=== PATIENT | male | born 1990 | race Caucasian/White ===

== ENCOUNTER 2020-04-22 07:56 | Outpatient (CLI) | payer BC, SELFPAY ==
--- NOTE | ~2020-04-22 | CT_ITS ---
EXAMINATION: CT soft tiss neck chst ab w EXAM DATE: 04/22/2020 08:35 INDICATION: R59.1 - Generalized enlarged lymph nodes. Symptoms 3 months. TECHNIQUE: Spiral CT of the neck, chest, abdomen was performed following intravenous injection of 100 mL Omnipaque 350. Axial, coronal and sagittal images of the neck were reviewed. Axial, coronal and sagittal images of the chest were reviewed. Coronal maximum intensity pixel images of chest reviewe d. Axial, coronal and sagittal images of the abdomen were reviewed. The dose-length product (DLP) f or this examination was 1136.91 mGy-cm. The exposure was tailored according to patient size (auto mA exposure control), and iterative reconstruction (ASIR) was used as additional dose reduction techniq ue. There is no prior study for comparison. FINDINGS: NECK: The thyroid gland is unremarkable. The submandibular and parotid glands are symmetric. Ther e is scattered internal jugular chain and submandibular lymph nodes. On the right one of the largest internal jugular chain lymph nodes measures 1.4 x 0.9 cm. A submental lymph node measures 10 x 8 mm. The airway is unremarkable. Parapharyngeal and pre-glottic fat planes are preserved. The opacifi ed vasculature is patent. The orbits are unremarkable. Moderate-sized right maxillary sinus mucou s retention cyst, several small left maxillary sinus mucous retention cyst. There is cervical spondy losis. CHEST: The lungs are clear. 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 There are no pleural or pericardial effusions. Tracheobronchial tree is patent. There is no medi astinal, hilar or axillary lymphadenopathy. There is no pneumothorax. Heart normal in size. No evidence of coronary arterial calcification. ABDOMEN: The liver, spleen, adrenal glands and pancreas are unremarkable. Gallbladder is unremarkabl e. No biliary obstruction. Portal and splenic veins are patent. Kidneys enhance symmetrically. Th ere is no hydronephrosis. There is no retroperitoneal or mesenteric lymphadenopathy. The stomach and small bowel are unremarkable. There is expected amount of colonic stool. No free intraperiton eal gas. There are no osteoblastic or osteolytic lesions identified. IMPRESSION: Submental and internal jugular chain lymph nodes which are upper limits of normal in size . No thoracic or abdominal lymphadenopathy. If symptoms persist, consider follow-up neck CT or ENT co nsult. Reviewed, dictated and finalized at location B. [facility] [employer] SPECIALIST IMPRESSION: Submental and internal jugular chain lymph nodes which are upper li mits of normal in size. No thoracic or abdominal lymphadenopathy. If symptoms p ersist, consider follow-up neck CT or ENT consult.
== END 2020-04-22 07:57 | disposition home or self-care (01) ==
PROVIDERS: PCP Internal Medicine; Visit Provider Internal Medicine
DX: R59.1 Generalized enlarged lymph nodes (principal)
CPT/HCPCS: 70491; 71260; 74160; Q9967

== ENCOUNTER → 2020-05-23 01:50 | Outpatient (CLI) | payer BC, SELFPAY ==
[2020-05-23 19:35] LABS: SARS-CoV-2 RNA PCR Negative
== END ==
PROVIDERS: PCP Internal Medicine; Visit Provider Otolaryngology
DX: Z01.812 Encounter for preprocedural laboratory examination (principal); Z20.822 Contact with and (suspected) exposure to COVID-19
CPT/HCPCS: C9803; U0003; U0005

== ENCOUNTER 2023-03-03 08:27 | Emergency (ER) | payer OTHER, SELFPAY ==
[2023-03-03 08:37] VITALS: BP 114/82; PULSE 69; RESP 16; TEMP 36.8; O2SAT 99
--- NOTE | 2023-03-03 08:43 | ED.URI ---
HPI - URI/Sore Throat General Chief Complaint: Upper Respiratory Infection Stated Complaint: Sore throat;Cough Time Seen by Provider: 03/03/23 08:43 Source: patient, RN notes reviewed and old records reviewed Mode of arrival: ambulatory Limitations: no limitations Related Data Allergies Allergy/AdvReac Type Severity Reaction Status Date / Time No Known Allergies Allergy Verified 05/23/20 12:15 Review of Systems Review of Systems: 32-year-old male presents to [facility] with complaint of sore throat that started on Saturday. Patient says sore throat is worsening and now also has a cough. Patient tried [id number] medications with no relief. Patient denies fever, shortness of breath, myalgia, or congestion Constitutional: Constitutional: Reports no additional constitutional complaints Eyes: Eyes: Reports no additional eye complaints ENT: Reports as per HPI, Denies nasal congestion and Reports sore throat Cardiovascular: Cardiovascular: Reports no additional cardiovascular complaints Respiratory: Respiratory: Reports as per HPI and Reports cough Neurologic: Reports system reviewed and no additional complaints, except as documented PMFSH Past Medical History Medical History Dyshidrotic eczema Lymphadenopathy Family History Family History Father Diabetes mellitus Grandparent Diabetes mellitus Mother Family history of mental disorder Social History Social History Smoking status: Never smoker Second hand tobacco smoke exposure: No Alcohol intake: current Substance use: never Substance use type: does not use Living arrangements: with family Gender identity (if verbalized by the patient): Male Spiritual care concerns: No Comments At the time of my signature, I reviewed and agree with the nursing past medical, surgical, social, and family history. There is no relevant family history pertinent to the patient complaint. Exam Const: General: cooperative, healthy appearing, no acute distress and well nourished Nutritional Appearance: well nourished Orientation/consciousness: patient oriented x3 Limitations: no limitations HENMT: Head: normal to inspection and normocephalic Ears: external ears normal, TM's normal bilaterally, mastoids normal and Abnormal EAC present Face/Nose/Sinus: normal facial exam Face and sinus: normal facial exam Mouth: Yes Normal oral and palatal mucosa present, Yes oropharynx normal and Yes moist mucous membranes Throat: uvula midline (Positive erythema, tonsils 2+) Eyes: General: appearance normal, both eyes and all related structures Sclera: sclerae normal Pupils: Equal, round and reactive pupils present Resp: Effort & Inspection: normal respiratory effort, able to speak in complete sentences, no audible wheezes, no cough, no respiratory distress and no retractions Auscultation: clear to auscultation bilaterally, no crackles, no rales, no rhonchi and no wheezes Cardio: Rate: regular rate Rhythm: regular rhythm Skin: General skin exam: normal color and no rashes or lesions noted Neuro: General: patient oriented x3 Cranial nerves: Yes Equal, round and reactive pupils present Psych: Appearance: grossly normal Course Course Emergency Course: Some parts of this dictation were generated by voice recognition software and may contain typographical and/or grammatical inaccuracies. Level of Care: Express Care Visit Vital Signs Vital signs: Vital Signs Temperature 98.3 F 03/03/23 08:37 Pulse Rate 69 03/03/23 08:37 Respiratory Rate 16 03/03/23 08:37 Blood Pressure 114/82 03/03/23 08:37 Pulse Oximetry 99 03/03/23 08:37 Temperature 98.3 F 03/03/23 08:37 Pulse Rate 69 03/03/23 08:37 Respiratory Rate 16 03/03/23 08:37 Blood Pressure 114/82 03/03/23 08
== END 2023-03-03 09:05 | disposition home or self-care (01) ==
PROVIDERS: Emergency Provider Registered Nurse; PCP Internal Medicine
DX: J02.0 Streptococcal pharyngitis (principal)
CPT/HCPCS: 87880; 99213; G0463

== ENCOUNTER 2023-08-05 16:57 | Outpatient (CLI) | payer SELFPAY ==
--- NOTE | ~2023-08-05 | XR_ITS ---
EXAMINATION: XR lumbar spine 2-3V DATE: 08/05/2023 17:19 INDICATION: Low back pain, unspecified. TECHNIQUE: 3 views of lumbar spine including standing views were obtained. COMPARISON: None. FINDINGS: Bone alignment is normal. Vertebral body heights are normal. There is mildly decreased disc height at L2-L3 and L5-S1. There is multilevel mild facet joint osteoarthritis. IMPRESSION: 1. Mild lumbar spondylosis. Reviewed, dictated and finalized at location A. IMPRESSION: 1. Mild lumbar spondylosis.
== END 2023-08-05 16:58 ==
PROVIDERS: PCP Nurse Practitioner Family; Visit Provider Nurse Practitioner Family
DX: M47.896 Other spondylosis, lumbar region (principal)
CPT/HCPCS: 72100

== ENCOUNTER 2024-12-06 04:27 | Emergency (ER) | payer OTHER, SELFPAY ==
[2024-12-06] VITALS (42 sets, daily range): BP systolic 110–144; BP diastolic 71–98; PULSE 65–89; RESP 9–21; TEMP 36.8; O2SAT 96–100
--- NOTE | ~2024-12-06 | XR_ITS ---
EXAMINATION: XR chest 2V 12/06/2024 05:03 INDICATION: Chest pain PROCEDURE: PA and lateral views of the chest COMPARISON: No prior studies for comparison. FINDINGS: The lungs are clear. The cardiomediastinal silhouette is within normal limits. There are no pleural effusions. There is no pneumothorax suspected. IMPRESSION: 1: NO ACUTE CARDIOPULMONARY DISEASE. Reviewed, dictated and finalized at location O.
--- NOTE | ~2024-12-06 | CT_ITS ---
EXAMINATION: CTA chest PE abdomen pel DATE: 12/06/2024 06:31 INDICATION: Chest pain. Increased lipase levels. TECHNIQUE: Computed tomography (CT) pulmonary angiogram of the chest was performed with 100 mL Omnipaque-350 intravenous contrast. Additional 3D reconstructions utilizing coronal maximum intensity projection (MIP) were performed. CT of the abdomen and pelvis was performed with intravenous contrast utilizing the same contrast bolus following a short delay. Automated exposure control and iterative reconstruction technique were employed. The dose-length product was 791.56 mGy-cm. COMPARISON: None FINDINGS: Chest: No pulmonary embolism. No pneumonia, pulmonary edema or other pulmonary infiltrates. No pleural effusion or pneumothorax. Heart size is normal. No pericardial effusion. Thoracic aorta is normal in caliber with no dissection. Small amount of residual thymic tissue in the anterior mediastinum with typical triangular morphology and mixed fat and soft tissue density. No pathologically enlarged thoracic lymphadenopathy. Mild midthoracic spondylosis with a few Schmorl's nodes along the mid and lower thoracic spine. Abdomen/pelvis: Liver, gallbladder, spleen, pancreas, bilateral adrenal glands and kidneys are normal. No intra or extra hepatic biliary ductal dilation. Bowels including the appendix are normal. Small fat-containing umbilical hernia. Bladder is normal. No free intraperitoneal gas or fluid. No pathologically enlarged abdominal or pelvic lymphadenopathy. Moderate disc height loss at L2-L3. The inferior articular processes aren't fused bilaterally at L2. IMPRESSION: 1. No pulmonary embolism or other acute cardiopulmonary disease. 2. No acute intra-abdominal/pelvic process. 3. 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 Reviewed, dictated and finalized at location A. IMPRESSION: 1. No pulmonary embolism or other acute cardiopulmonary disease. 2. No acute intra-abdominal/pelvic process. 3. 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
--- NOTE | 2024-12-06 04:29 | ECG_ITS ---
Test Date: 2024-12-06 04:32:44 Measurements Intervals [place] Rate: 70 P: 56 [place]: 167 QRS: 46 QRSD: 90 T: 31 QT: 377 QTc: 409 Interpretive Statements SINUS RHYTHM BASELINE ARTIFACT- I, II, III, AVR, AVL, AVF, V1-V6 NORMAL ECG No previous ECG available for comparison Electronically Signed On 12-06-2024 07:23:10 CDT by Garry Lombardi D.O.
[2024-12-06 04:37] LABS: Hematocrit 45.3 % (42.0-52.0); Hemoglobin 15.2 g/dL (14.0-18.0); Immature Granulocyte Percent A 0.4 % (0-0.5); Lymphocytes Absolute Auto 2.81 K/mm3 (0.9-3.2); Mean Corpuscular HGB Conc 33.6 g/dl (32-36); Mean Corpuscular Hemoglobin 29.9 pg (26-34); Mean Corpuscular Volume 89.2 fl (80-100); Nucleated Red Blood Cells Absolute Auto 0.000 K/mm3 (0.0-0.012); Nucleated Red Blood Cells Perc 0.0 % (0.0-0.2); Platelet Count Result 305 k/mm3 (150-375); Red Blood Count 5.08 M/mm3 (4.6-6.20); White Blood Count 8.4 K/mm3 (4.5-10.0)
--- NOTE | 2024-12-06 04:40 | ED_ITS ---
HPI - General Adult General Chief complaint: Chest Pain <Rad Winters MD - Last Filed: 12/06/24 04:41> Stated complaint: chest pain <Rad Winters MD - Last Filed: 12/06/24 04:41> Time Seen by Provider: 12/06/24 04:27 <Rad Winters MD - Last Filed: 12/06/24 04:41> History of Present Illness HPI narrative: Patient is a 33-year-old gentleman who presents emergency department chief complaint of left-sided chest pain. The patient reports pain began just prior to arrival reports woke him up from sleep reports it was sharp reports worse with inspiration patient states that he did some pushups today with his kids on his back and also went for a run today patient reports no prior history of cardiac disease reports no family history for cardiac disease at young age. EMS was called a normal EKG in the field <Rad Winters MD - Last Filed: 12/06/24 04:41> Patient is a 33-year-old gentleman who presents to the emergency department chief complaint of left-sided chest pain. The patient reports pain began just prior to arrival reports woke him up from sleep reports it was sharp reports worse with inspiration patient states that he did some pushups today with his kids on his back and also went for a run today patient reports no prior history of cardiac disease reports no family history for cardiac disease at young age. EMS was called a normal EKG in the field <Ho Velez MD - Last Filed: 12/06/24 17:04> Related Data Allergies/adverse reactions: Allergies Allergy/AdvReac Type Severity Reaction Status Date / Time No Known Allergies Allergy Verified 07/18/23 07:15 <Rad Winters MD - Last Filed: 12/06/24 04:41> Review of Systems 2 Review of Systems: A 10 system review of systems was completed on the patient and is negative except for what is stated in the HPI. Nursing and ancillary documentation was reviewed. <Rad Winters MD - Last Filed: 12/06/24 04:41> PMFSH Past Medical History Medical History: Medical History Abnormal CT scan, neck Dyshidrotic eczema Lymphadenopathy <Rad Winters MD - Last Filed: 12/06/24 04:41> Family History Family History: Family History Father Diabetes mellitus Grandparent Diabetes mellitus Mother Family history of mental disorder <Rad Winters MD - Last Filed: 12/06/24 04:41> Social History Social History: Social History Smoking status: Never smoker Second hand tobacco smoke exposure: No Alcohol intake: current Substance use: never Substance use type: does not use Living arrangements: with family Gender identity (if verbalized by the patient): Male Spiritual care concerns: No <Rad Winters MD - Last Filed: 12/06/24 04:41> Exam 2 Narrative: GENERAL: Well-appearing, well-nourished, and in no acute distress. HEAD: Normocephalic, atraumatic. EYES: PERRLA and EOMI. ENT: Nares clear, no rhinorrhea or epistaxis. Mucous membranes moist. NECK: Supple. CHEST: Clear to auscultation. No respiratory distress. HEART: Regular rate and rhythm. No murmur heard. Normal peripheral pulses. ABDOMEN: Soft, nontender, nondistended, normal active bowel sounds. EXTREMITIES: Normal range of motion. No edema. SKIN: Warm, dry, no rash. NEURO: No focal deficits. Alert and oriented x3. PSYCH: Normal mood and affect. <Rad Winters MD - Last Filed: 12/06/24 04:41> Course Reevaluation(s) Reevaluation #1: On re-evaluation patient does feel improved. Patient was updated results of the workup patient was comfortable the plan for discharge and close follow- up. <Ho Velez MD - Last Filed: 12/06/24 17:04> Vital Signs Vital signs: Vital Signs Temperature 98.3 F 12/06/24 04:24 Pulse Rate 79 12/06/24 04:24 Respiratory Rate 12 12/06/24 04:24 Blood Pressure 135/94 H 12/06/24 04:24 Pulse Oximetry 96 12/06/24 04:24 Oxygen Delivery Room Air 12/06/24 04:24 Temperature 98.3 F 12/06/24 04:24 Pulse Rate 73 12/06/24 11:01 Respiratory Rate 17 12/06/24 11:01 Blood Pressure 120/93 H 12/06/24 11:00 Pulse Oximetry 98 12/06/24 11:00 Oxygen Delivery Room Air 12/06/24 04:28 <Rad Winters MD - Last Filed: 12/06/24 04:41> Vital Signs Temperature 98.3 F 12/06/24 04:24 Pulse Rate 79 12/06/24 04:24 Respiratory Rate 12 12/06/24 04:24 Blood Pressure 135/94 H 12/06/24 04:24 Pulse Oximetry 96 12/06/24 04:24 Oxygen Delivery Room Air 12/06/24 04:24 Temperature 98.3 F 12/06/24 04:24 Pulse Rate 73 12/06/24 11:01 Respiratory Rate 17 12/06/24 11:01 Blood Pressure 120/93 H 12/06/24 11:00 Pulse Oximetry 98 12/06/24 11:00 Oxygen Delivery Room Air 12/06/24 04:28 <Ho Velez MD - Last Filed: 12/06/24 17:04> Medical Decision Making MDM Narrative Medical decision making narrative: [age] old male presents emergency department for evaluation of left upper anterior chest pain that is worse with deep inspiration. Patient reports the pain started prior to arrival and did wake from sleep and pain is worse with deep inspiration. Patient does state he was doing some pushups with his kids on his back yesterday and also went for a run. Patient denies any prior history of coronary disease. Patient is currently afebrile the leukocytosis hemoglobin 15.2. D-dimer was negative INR was 1.1. Patient's lipase was mildly elevated at 350. Patient had negative serial troponins. <Ho Velez MD - Last Filed: 12/06/24 17:04> Differential Diagnosis Differential Diagnosis: Pulmonary embolism, pneumothorax, pneumonia, muscle strain, ACS <Ho Velez MD - Last Filed: 12/06/24 17:04> Vital Signs Vital Signs: Vital Signs Temperature 98.3 F 12/06/24 04:24 Pulse Rate 79 12/06/24 04:24 Respiratory Rate 12 12/06/24 04:24 Blood Pressure 135/94 H 12/06/24 04:24 Pulse Oximetry 96 12/06/24 04:24 Oxygen Delivery Room Air 12/06/24 04:24 Temperature 98.3 F 12/06/24 04:24 Pulse Rate 73 12/06/24 11:01 Respiratory Rate 17 12/06/24 11:01 Blood Pressure 120/93 H 12/06/24 11:00 Pulse Oximetry 98 12/06/24 11:00 Oxygen Delivery Room Air 12/06/24 04:28 <Rad Winters MD - Last Filed: 12/06/24 04:41> Vital Signs Temperature 98.3 F 12/06/24 04:24 Pulse Rate 79 12/06/24 04:24 Respiratory Rate 12 12/06/24 04:24 Blood Pressure 135/94 H 12/06/24 04:24 Pulse Oximetry 96 12/06/24 04:24 Oxygen Delivery Room Air 12/06/24 04:24 Temperature 98.3 F 12/06/24 04:24 Pulse Rate 73 12/06/24 11:01 Respiratory Rate 17 12/06/24 11:01 Blood Pressure 120/93 H 12/06/24 11:00 Pulse Oximetry 98 12/06/24 11:00 Oxygen Delivery Room Air 12/06/24 04:28 <Ho Velez MD - Last Filed: 12/06/24 17:04> Lab Data Lab results reviewed: Yes I reviewed the patient's lab results. <Ho Velez MD - Last Filed: 12/06/24 17:04> Result diagrams: 12/06/24 04:30 12/06/24 04:30 <Rad Winters MD - Last Filed: 12/06/24 04:41> Labs: Lab Results 12/06/24 12/06/24 Range/Units 04:30 08:33 WBC 8.4 (4.5-10.0) K/mm3 RBC 5.08 (4.6-6.20) M/mm3 Hgb 15.2 (14.0-18.0) g/dL Hct 45.3 (42.0-52.0) % MCV 89.2 (80-100) fl MCH 29.9 (26-34) pg MCHC 33.6 (32-36) g/dl RDW 12.1 (11.5-14.5) % Plt Count 305 (150-375) k/mm3 MPV 9.7 (7.4-10.4) fl Immature Gran % (Auto) 0.4 (0-0.5) % Neut % (Auto) 53.9 (45.5-73.1) % Lymph % (Auto) 33.6 (18.3-44.2) % Nicholas % (Auto) 8.1 (2.6-8.5) % Eos % (Auto) 3.5 (0-4.4) % Baso % (Auto) 0.5 (0.2-1.2) % Lymph # (Auto) 2.81 (0.9-3.2) K/mm3 Nicholas # (Auto) 0.7 H (0.1-0.6) K/mm3 Eos # (Auto) 0.3 (0-0.3) K/mm3 Baso # (Auto) 0.0 (0.0-0.1) K/mm3 Abs Immat Gran (auto) 0.03 (0.00-0.031) K/mm3 Absolute Neuts (auto) 4.5 (1.3-6.7) K/mm3 Absolute Nucleated RBC 0.000 (0.0-0.012) K/mm3 Nucleated RBC % 0.0 (0.0-0.2) % PT 14.0 (11.1-14.7) Seconds INR 1.1 APTT 31.9 (22.3-36.8) Seconds D-Dimer < 0.27 (<0.48) ug/mL Sodium 138 (137-145) mmol/L Potassium 3.9 (3.4-5.0) mmol/L Chloride 102 (98-107) mmol/L Carbon Dioxide 28 (22-30) mmol/L Anion Gap 8 (4-12) mmol/L BUN 21 H (9-20) mg/dL Creatinine 1.00 (0.7-1.3) mg/dL Estim Creat Clear Calc 89 ml/min Estimated GFR > 60 (59 - ) Glucose 104 (65-110) mg/dL Calcium 9.4 (8.4-10.2) mg/dL Total Bilirubin 0.8 (0.2-1.3) mg/dL AST 27 (17-59) U/L ALT 28 (6-50) U/L Alkaline Phosphatase 73 (38-126) U/L Troponin I < 0.012 < 0.012 (0.000-0.034) ng/mL NT-Pro-B Natriuret Pep < 20 (19.9-100) pg/mL Total Protein 7.8 (6.3-8.2) g/dL Albumin 4.6 (3.5-5.1) g/dL Lipase 350 H (23-300) U/L <Rad Winters MD - Last Filed: 12/06/24 04:41> Lab Results 12/06/24 12/06/24 Range/Units 04:30 08:33 WBC 8.4 (4.5-10.0) K/mm3 RBC 5.08 (4.6-6.20) M/mm3 Hgb 15.2 (14.0-18.0) g/dL Hct 45.3 (42.0-52.0) % MCV 89.2 (80-100) fl MCH 29.9 (26-34) pg MCHC 33.6 (32-36) g/dl RDW 12.1 (11.5-14.5) % Plt Count 305 (150-375) k/mm3 MPV 9.7 (7.4-10.4) fl Immature Gran % (Auto) 0.4 (0-0.5) % Neut % (Auto) 53.9 (45.5-73.1) % Lymph % (Auto) 33.6 (18.3-44.2) % Nicholas % (Auto) 8.1 (2.6-8.5) % Eos % (Auto) 3.5 (0-4.4) % Baso % (Auto) 0.5 (0.2-1.2) % Lymph # (Auto) 2.81 (0.9-3.2) K/mm3 Nicholas # (Auto) 0.7 H (0.1-0.6) K/mm3 Eos # (Auto) 0.3 (0-0.3) K/mm3 Baso # (Auto) 0.0 (0.0-0.1) K/mm3 Abs Immat Gran (auto) 0.03 (0.00-0.031) K/mm3 Absolute Neuts (auto) 4.5 (1.3-6.7) K/mm3 Absolute Nucleated RBC 0.000 (0.0-0.012) K/mm3 Nucleated RBC % 0.0 (0.0-0.2) % PT 14.0 (11.1-14.7) Seconds INR 1.1 APTT 31.9 (22.3-36.8) Seconds D-Dimer < 0.27 (<0.48) ug/mL Sodium 138 (137-145) mmol/L Potassium 3.9 (3.4-5.0) mmol/L Chloride 102 (98-107) mmol/L Carbon Dioxide 28 (22-30) mmol/L Anion Gap 8 (4-12) mmol/L BUN 21 H (9-20) mg/dL Creatinine 1.00 (0.7-1.3) mg/dL Estim Creat Clear Calc 89 ml/min Estimated GFR > 60 (59 - ) Glucose 104 (65-110) mg/dL Calcium 9.4 (8.4-10.2) mg/dL Total Bilirubin 0.8 (0.2-1.3) mg/dL AST 27 (17-59) U/L ALT 28 (6-50) U/L Alkaline Phosphatase 73 (38-126) U/L Troponin I < 0.012 < 0.012 (0.000-0.034) ng/mL NT-Pro-B Natriuret Pep < 20 (19.9-100) pg/mL Total Protein 7.8 (6.3-8.2) g/dL Albumin 4.6 (3.5-5.1) g/dL Lipase 350 H (23-300) U/L <Ho Velez MD - Last Filed: 12/06/24 17:04> Imaging Data Radiologist's impression: Impressions Chest/Abdomen/Pelvis CTA 12/06/24 10:14 IMPRESSION: 1. No pulmonary embolism or other acute cardiopulmonary disease. 2. No acute intra-abdominal/pelvic process. 3. 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 Chest X-Ray 12/06/24 10:50 IMPRESSION: 1: NO ACUTE CARDIOPULMONARY DISEASE. <Ho Velez MD - Last Filed: 12/06/24 17:04> Discharge Plan Discharge Clinical Impression: Acute chest wall pain, Muscle strain <Rad Winters MD - Last Filed: 12/06/24 04:41> Patient Disposition: Home <Rad Winters MD - Last Filed: 12/06/24 04:41> Condition: Stable <Rad Winters MD - Last Filed: 12/06/24 04:41> Instructions: Antibiotic Form, Chest Wall Pain (ED) <Rad Winters MD - Last Filed: 12/06/24 04:41> Additional Instructions: Tylenol and ibuprofen for pain control. Flexeril for muscle spasm. Have close follow-up with your primary care physician for additional outpatient cardiac testing. If you have any worsening symptoms then please call or return to the emergency department. <Rad Winters MD - Last Filed: 12/06/24 04:41> Patient Language: Malagasy <Rad Winters MD - Last Filed: 12/06/24 04:41> Prescriptions: New cyclobenzaprine 10 mg tablet 10 mg PO BID PRN (Reason: muscle spasm) Qty: 14 0RF <Rad Winters MD - Last Filed: 12/06/24 04:41> Follow-up/Referrals: Rowan Woody APRN [Primary Care Provider, Internal Medicine] <Rad Winters MD - Last Filed: 12/06/24 04:41> Quality HEART score for chest pain patients History: slightly suspicious <Ho Velez MD - Last Filed: 12/06/24 17:04> ECG: normal <Ho Velez MD - Last Filed: 12/06/24 17:04> Age: < or = to 45 years <Ho Velez MD - Last Filed: 12/06/24 17:04> Risk factors: 1 or 2 risk factors <Ho Velez MD - Last Filed: 12/06/24 17:04> Troponin: < or = to 1x normal limit <Ho Velez MD - Last Filed: 12/06/24 17:04> Heart score: 1 <Ho Velez MD - Last Filed: 12/06/24 17:04>
[2024-12-06 04:49] LABS: INR 1.1; Partial Thromboplastin Time 31.9 Seconds (22.3-36.8); Prothrombin Time 14.0 Seconds (11.1-14.7)
[2024-12-06 04:55] LABS: Alanine Aminotransferase 28 U/L (6-50); Albumin Level 4.6 g/dL (3.5-5.1); Alkaline Phosphatase 73 U/L (38-126); Anion Gap 8 mmol/L (4-12); Aspartate Amino Transferase 27 U/L (17-59); Bilirubin,Total 0.8 mg/dL (0.2-1.3); Blood Urea Nitrogen 21 mg/dL (9-20); Calcium 9.4 mg/dL (8.4-10.2); Carbon Dioxide 28 mmol/L (22-30); Chloride 102 mmol/L (98-107); Estimated CRCL calculation 89 ml/min; Estimated Glomerular Filt Rate > 60; Glucose 104 mg/dL (65-110); Lipase 350 U/L (23-300); Potassium 3.9 mmol/L (3.4-5.0); Sodium 138 mmol/L (137-145); Total Protein 7.8 g/dL (6.3-8.2)
[2024-12-06 05:04] LABS: NT Pro B Type Natriuretic Pept < 20 pg/mL (19.9-100); Troponin I < 0.012 ng/mL (0.000-0.034)
--- NOTE | 2024-12-06 05:08 | PC.NURSE ---
lab contacted about adding on d-dimer
--- NOTE | 2024-12-06 08:28 | ECG_ITS ---
Test Date: 2024-12-06 08:33:04 Measurements Intervals [place] Rate: 71 P: 146 [place]: 163 QRS: 95 QRSD: 93 T: -28 QT: 358 QTc: 391 Interpretive Statements SINUS RHYTHM ARM LEADS REVERSED BORDERLINE ST-T WAVE ABNORMALITY- INFERIOR LEADS BASELINE ARTIFACT- I, III, AVL, AVF BORDERLINE ECG Compared to ECG 12/06/2024 04:32:44 No significant changes Electronically Signed On 12-06-2024 16:00:15 CDT by Garry Lombardi D.O.
[2024-12-06] MEDS: KETOROLAC 15 MG/ML VIAL (*BKC) IV PUSH (08:46)
[2024-12-06 09:05] LABS: Troponin I < 0.012 ng/mL (0.000-0.034)
== END 2024-12-06 11:04 | disposition home or self-care (01) ==
PROVIDERS: Emergency Provider Emergency Medicine; PCP Nurse Practitioner Family
DX: S29.011A Strain of muscle and tendon of front wall of thorax, initial encounter (principal); X50.0XXA Overexertion from strenuous movement or load, initial encounter; R94.31 Abnormal electrocardiogram [ECG] [EKG]
CPT/HCPCS: 36415; 71046; 71275; 74177; 80053; 83690; 83880; 84484; 85025; 85380; 85610; 85730; 93005; 96374; 99284; J1885; Q9967